=== PATIENT | male | born 1965 | race Caucasian/White ===

== ENCOUNTER → 2017-04-28 | Outpatient (REF) | payer BC | LOC: M LAB REF 16:14 | PROVIDERS: ATTEND Orthopaedic Surgery | DX: R22.41 Localized swelling, mass and lump, right lower limb (principal) ==

== ENCOUNTER → 2022-02-16 | Outpatient (CLI) | payer BC | LOC: M RAD 14:10 | PROVIDERS: ATTEND Physician Assistant Medical | DX: M19.041 Primary osteoarthritis, right hand (principal) ==